=== PATIENT | male | born 1985 | race Caucasian/White ===

== ENCOUNTER 2020-11-07 15:00 | Outpatient (CLI) | payer BC | END 2020-11-07 15:01 | disposition short-term general hospital (02) | LOC: EMS 15:00 | DX: M54.5 Low back pain (principal); R20.0 Anesthesia of skin; V86.56XA Driver of dirt bike or motor/cross bike injured in nontraffic accident, initial encounter; Y93.39 Activity, other involving climbing, rappelling and jumping off; Y92.838 Other recreation area as the place of occurrence of the external cause | CPT/HCPCS: A0425; A0427 ==